=== PATIENT | male | born 1970 | race Caucasian/White ===

== ENCOUNTER 2023-03-21 02:42 | Observation (INO) | payer OTHER ==
[2023-03-21] MEDS ORDERED: SODIUM CHLORIDE 0.9% 1,000 ML IV STA (03:30)
[2023-03-21] MEDS ORDERED: SODIUM CHLORIDE 0.9% 1,000 ML IV ONE (03:30)
--- NOTE | 2023-03-21 03:39 | ED ---
Abdominal Pain HPI - General Chief Complaint: Abdominal Pain Stated Complaint: Gallbladder issue Time Seen by Provider: 03/21/23 03:15 Source: patient Mode of arrival: ambulatory Limitations: no limitations - History of Present Illness Initial Comments: This patient is a 52-year-old man who arrives here as a transfer from [facility]. The patient had gone there tonight to have evaluation of upper abdominal pain. The patient states he has been having intermittent pains like this going back for weeks to months. Tonight the pain occurred at about 7 PM after he had eaten. When the pain did not resolve he went to the other hospital. He had labs there that included a leukocytosis white count was 12.8. He had normal AST/ALT/bilirubin. He had computed tomography scan that showed gallbladder wall thickening and pericholecystic fluid. The patient did have decent pain relief, and is declining further analgesics here. MD Complaint: abdominal pain -: hour(s) Location: RUQ, epigastric Radiation: back Migration to: no migration Severity: moderate Quality: aching, sharp Consistency: constant Improves With: nothing Worsens With: nothing Associated Symptoms: nausea, vomiting - Related Data Allergies Allergy/AdvReac Type Severity Reaction Status Date / Time No Known Allergies Allergy Verified 03/21/23 03:01 Review of Systems ROS Statement: Those systems with pertinent positive or pertinent negative responses have been documented in the HPI. ROS Other: All systems not noted in ROS Statement are negative. Constitutional: Denies: fever, chills Respiratory: Denies: cough, dyspnea Cardiovascular: Denies: chest pain, palpitations Gastrointestinal: Reports: abdominal pain, nausea. Denies: vomiting, diarrhea Genitourinary: Denies: dysuria, hematuria Skin: Denies: rash Neurological: Denies: headache, weakness Past Medical History Past Medical History: Deep Vein Thrombosis (DVT) History of Any Multi-Drug Resistant Organisms: None Reported Additional Past Surgical History / Comment(s): vein stripping left leg, wisdom teeth removal. Past Psychological History: No Psychological Hx Reported Smoking Status: Current every day smoker Past Alcohol Use History: Occasional Past Drug Use History: Marijuana General Exam Limitations: no limitations General appearance: alert, in no apparent distress Head exam: Present: atraumatic, normocephalic Eye exam: Present: normal appearance. Absent: scleral icterus, conjunctival injection ENT exam: Present: normal oropharynx Neck exam: Present: normal inspection Respiratory exam: Present: normal lung sounds bilaterally. Absent: respiratory distress, wheezes, rales, rhonchi, stridor, accessory muscle use Cardiovascular Exam: Present: regular rate, normal rhythm, normal heart sounds. Absent: systolic murmur, diastolic murmur, rubs, gallop GI/Abdominal exam: Present: soft, tenderness. Absent: distended, guarding, rebound, rigid, mass, pulsatile mass, hernia Extremities exam: Present: normal inspection, normal capillary refill. Absent: pedal edema, calf tenderness Back exam: Present: normal inspection. Absent: CVA tenderness (R), CVA tenderness (L) Neurological exam: Present: alert Skin exam: Present: warm, dry, intact, normal color. Absent: rash Course Vital Signs 03/21/23 02:57 Temperature 98.2 F Pulse Rate 69 Respiratory 18 Rate Blood Pressure 129/64 O2 Sat by Pulse 97 Oximetry Disposition Referrals: Alannah Espinal MD [Primary Care Provider] - 1-2 days
[2023-03-21 03:54] LABS: Basophils % (A) 0 %; Eosinophils # (A) 0.1 k/uL (0-0.7); Eosinophils % (A) 1 %; HCT 47.8 % (39.0-53.0); HGB 16.4 gm/dL (13.0-17.5); Lymphocytes # (A) 2.5 k/uL (1.0-4.8); Lymphocytes % (A) 20 %; MCH 34.3 pg (25.0-35.0); MCHC 34.2 g/dL (31.0-37.0); MCV 100.2 fL (80.0-100.0); Mean Platelet Volume 8.1; Monocytes # (A) 0.6 k/uL (0-1.0); Monocytes % (A) 5 %; Neutrophils # (A) 9.2 k/uL (1.3-7.7); Neutrophils % (A) 73 %; Platelet Count 166 k/uL (150-450); RBC 4.77 m/uL (4.30-5.90); RDW 12.4 % (11.5-15.5); WBC 12.6 k/uL (3.8-10.6)
[2023-03-21 04:09] LABS: ALT 38 U/L (4-49); AST 55 U/L (17-59); African American GFR (CKD) >90 (>60 ml/min/1.73 sqM); Albumin 3.5 g/dL (3.5-5.0); Alkaline Phosphatase 66 U/L (38-126); Anion Gap 7 mmol/L; Blood Urea Nitrogen 16 mg/dL (9-20); Calcium 8.9 mg/dL (8.4-10.2); Carbon Dioxide 21 mmol/L (22-30); Chloride 110 mmol/L (98-107); Glucose 121 mg/dL (74-99); Non-African American GFR(CKD) >90 (>60 ml/min/1.73 sqM); Potassium 4.5 mmol/L (3.5-5.1); Sodium 138 mmol/L (137-145); Total Bilirubin 0.3 mg/dL (0.2-1.3); Total Protein 5.9 g/dL (6.3-8.2)
[2023-03-21] MEDS ORDERED: ACETAMINOPHEN TAB 325 MG TAB PO PRN (04:15)
[2023-03-21] MEDS ORDERED: NALOXONE 0.4 MG/ML 1 ML VIAL IV PRN (04:15)
--- NOTE | 2023-03-21 04:16 | P.CON ---
Consult Note - . Consult date: 03/21/23 Assessment/Plan:: Chief complaint; 52-year-old male transferred in from local emergency department for complaints of right upper quadrant and epigastric pain for the past 1 week HPI; patient states for the past approximately 7-10 days he had been having intermittent abdominal pain, worse after eating and worse in the evening. Over the last 24 hours this had become more severe prompting of the medical evaluation. Patient was seen in the [facility] where lab work and a CAT scan was performed. Examination and workup consistent with cholelithiasis and acute cholecystitis. PMH; DVT approximately 7 years ago Medications; 1 baby aspirin per day ALLERGIES; NO KNOWN DRUG ALLERGIES PSH; vein stripping left lower extremity, skin graft to hand Habits; tobacco positive for approximately 1 pack per day EtOH occasional use, daily use marijuana. Physical exam: HEENT: Normocephalic, sclerae nonicteric Chest: Clear, non labored repirations Heart: Regular rate and rhythm Abdomen: soft, mild to mod tenderness epigastrium Extremities: No edema Neuro: Alert and oriented, appropriate CT; notes presence of likely cholelithiasis, wall thickening and pericholecystic fluid. Labs: WBC 12.8, hemoglobin 16, platelets normal liver function studies within normal limits A/P : A 52-year-old gentleman with cholelithiasis, likely acute cholecystitis Admit, nothing by mouth, IV antibiotics Plan for laparoscopic possible open cholecystectomy this admission.
[2023-03-21] MEDS: SODIUM CHLORIDE 0.9% 1,000 ML IV SCH ×3 (04:24→19:51)
[2023-03-21 04:46] LABS: Partial Thromboplastin Time 24.3 sec (22.0-30.0); Prothrombin Time 10.6 sec (10.0-12.5)
[2023-03-21] MEDS ORDERED: HYDROmorphone 1 MG/ML 1 ML SYRINGE IVP PRN (11:24)
[2023-03-21] MEDS ORDERED: ACETAMINOPHEN IV (For NPO) 1,000 MG in EMPTY BAG 1 BAG IVPB ONE (11:24)
--- NOTE | 2023-03-21 11:24 | P.GSHP ---
History of Present Illness H&P Date: 03/21/23 Patient came in with atypical chest pain with epigastric right upper qaudrant pain after eating tacos. He reports progressive attacks in the last few days. He has family history of gallbladder disease. Recommend cardiac risk assessment. He denies any prior history of cardiac risk assessment or stress test. Past Medical History Past Medical History: Deep Vein Thrombosis (DVT) History of Any Multi-Drug Resistant Organisms: None Reported Additional Past Surgical History / Comment(s): vein stripping left leg, wisdom teeth removal, skin graft finger. Past Anesthesia/Blood Transfusion Reactions: No Reported Reaction Past Psychological History: No Psychological Hx Reported Smoking Status: Current every day smoker Past Alcohol Use History: Occasional Past Drug Use History: Marijuana - Past Family History Mother Family Medical History: No Reported History Father Family Medical History: Cancer, Hypertension Additional Family Medical History / Comment(s): lung CA, diverticulitis Medications and Allergies Home Medications Medication Instructions Recorded Confirmed Type Aspirin [Adult Low Dose Aspirin EC] 81 mg PO DAILY 03/21/23 03/21/23 History Allergies Allergy/AdvReac Type Severity Reaction Status Date / Time No Known Allergies Allergy Verified 03/21/23 03:01 Surgical - Exam Vital Signs Temp Pulse Resp BP Pulse Ox 98.2 F 69 18 129/64 97 03/21/23 02:57 03/21/23 02:57 03/21/23 02:57 03/21/23 02:57 03/21/23 02:57 Results - Labs 03/21/23 03:36 03/21/23 03:39 Abnormal Lab Results - Last 24 Hours (Table) 03/21/23 03/21/23 Range/Units 03:36 03:39 WBC 12.6 H (3.8-10.6) k/uL MCV 100.2 H (80.0-100.0) fL Neutrophils # 9.2 H (1.3-7.7) k/uL Chloride 110 H (98-107) mmol/L Carbon Dioxide 21 L (22-30) mmol/L Glucose 121 H (74-99) mg/dL Total Protein 5.9 L (6.3-8.2) g/dL Diabetes panel 03/21/23 Range/Units 03:39 Sodium 138 (137-145) mmol/L Potassium 4.5 (3.5-5.1) mmol/L Chloride 110 H (98-107) mmol/L Carbon Dioxide 21 L (22-30) mmol/L BUN 16 (9-20) mg/dL Creatinine 0.86 (0.66-1.25) mg/dL Glucose 121 H (74-99) mg/dL Calcium 8.9 (8.4-10.2) mg/dL AST 55 (17-59) U/L ALT 38 (4-49) U/L Alkaline Phosphatase 66 (38-126) U/L Total Protein 5.9 L (6.3-8.2) g/dL Albumin 3.5 (3.5-5.0) g/dL Calcium panel 03/21/23 Range/Units 03:39 Calcium 8.9 (8.4-10.2) mg/dL Albumin 3.5 (3.5-5.0) g/dL Pituitary panel 03/21/23 Range/Units 03:39 Sodium 138 (137-145) mmol/L Potassium 4.5 (3.5-5.1) mmol/L Chloride 110 H (98-107) mmol/L Carbon Dioxide 21 L (22-30) mmol/L BUN 16 (9-20) mg/dL Creatinine 0.86 (0.66-1.25) mg/dL Glucose 121 H (74-99) mg/dL Calcium 8.9 (8.4-10.2) mg/dL Adrenal panel 03/21/23 Range/Units 03:39 Sodium 138 (137-145) mmol/L Potassium 4.5 (3.5-5.1) mmol/L Chloride 110 H (98-107) mmol/L Carbon Dioxide 21 L (22-30) mmol/L BUN 16 (9-20) mg/dL Creatinine 0.86 (0.66-1.25) mg/dL Glucose 121 H (74-99) mg/dL Calcium 8.9 (8.4-10.2) mg/dL Total Bilirubin 0.3 (0.2-1.3) mg/dL AST 55 (17-59) U/L ALT 38 (4-49) U/L Alkaline Phosphatase 66 (38-126) U/L Total Protein 5.9 L (6.3-8.2) g/dL Albumin 3.5 (3.5-5.0) g/dL
--- NOTE | 2023-03-21 13:07 | P.CRDCN ---
History of Present Illness Consult date: 03/21/23 Consult reason: pre-op evaluation Chief complaint: abdominal pain History of present illness: History of present illness: Patient is a pleasant 52-year-old male with significant past medical history of DVT and varicose veins who presented to the emergency department with complaints of epigastric pain. He does not follow with telephone operator receptionist. Cardiology was consulted for preoperative clearance. He reports that he has been having epigastric pain mostly in the evenings after eating dinner while he is sitting in his chair for the past 7-10 days. Pain has been intermittent. He reports it was worse last night with diaphoresis and nausea. He denies having any shortness of breath or chest pain. He does smoke, uses occasional alcohol as well as marijuana, no other drug use. He denies any significant family history of heart disease. He states that he can walk a flight of stairs without stopping. EKG shows sinus rhythm with J-point elevation likely early repolarization. Troponin was negative 1. He does follow with Dr. Rojas vascular surgery for his vein issues and is currently on aspirin 81 mg. General surgery is planning for cholecystectomy tomorrow afternoon. REVIEW OF SYSTEMS: No fever or chills. No cough or expectoration. No diaphoresis. Patient denies headache, dizziness, blurred vision, double vision. Reports stomach discomfort. No nausea, vomiting. No hematochezia. No hematemesis. Denies any black stools or blood in his stools. Denies dysuria or hematuria. No muscle weakness or numbness. No chest pain or pressure. PHYSICAL EXAMINATION: This is a 52-year-old male in no apparent distress at the time of my examination. HEENT: Head is atraumatic, normocephalic. Pupils are equal, round. Sclerae anicteric. Conjunctivae are clear. Mucous membranes of the mouth are moist. Neck is supple. There is no jugular venous distention. No carotid bruit is heard. CHEST EXAMINATION: Lungs are clear to auscultation. No chest wall tenderness is noted on palpation or with deep breathing. HEART EXAMINATION: Heart regular rate and rhythm. S1, S2 heard. No murmurs, gallops or rub. ABDOMEN: Soft, nontender. Bowel sounds are heard. EXTREMITIES: 2+ peripheral pulses with no evidence of peripheral edema and no calf tenderness noted. NEUROLOGIC EXAMINATION: Patient is awake, alert and oriented x3. IMPRESSION AND PLAN: Epigastric pain Tobacco abuse Preoperative examination History of lower extremity DVT PLAN: We'll check echocardiogram to evaluate heart function and structure for preoperative clearance. If echo is unremarkable, then ok to proceed with surgery. Smoking cessation was emphasized. May consider stress testing as an outpatient in the future. I am dictating on behalf of Dr. Luis Armando Eng's history/physical and assessment/plan. Past Medical History Past Medical History: Deep Vein Thrombosis (DVT) History of Any Multi-Drug Resistant Organisms: None Reported Additional Past Surgical History / Comment(s): vein stripping left leg, wisdom teeth removal, skin graft finger. Past Anesthesia/Blood Transfusion Reactions: No Reported Reaction Past Psychological History: No Psychological Hx Reported Smoking Status: Current every day smoker Past Alcohol Use History: Occasional Past Drug Use History: Marijuana - Past Family History Mother Family Medical History: No Reported History Father Family Medical History: Cancer, Hypertension Additional Family Medical History / Comment(s): lung CA, diverticulitis Medications and Allergies Home Medications Medication Instructions Recorded Confirmed Type Aspirin [Adult Low Dose Aspirin EC] 81 mg PO DAILY 03/21/23 03/21/23 History Allergies Allergy/AdvReac Type Severity Reaction Status Date / Time No Known Allergies Allergy Verified 03/21/23 03:01 Physical Exam Vitals: Vital Signs Temp Pulse Pulse Resp BP BP Pulse Ox 03/21/23 08:00 97.9 F 61 16 149/63 97 03/21/23 07:39 61 20 126/65 95 03/21/23 06:00 55 L 16 123/65 95 03/21/23 02:57 98.2 F 69 18 129/64 97 Intake and Output 03/20/23 03/21/23 03/21/23 22:59 06:59 14:59 Other: Voiding Method Toilet Weight 93.44 kg 93.44 kg Results 03/21/23 03:36 03/21/23 03:39 Cardiac Enzymes 03/21/23 Range/Units 03:39 AST 55 (17-59) U/L Coagulation 03/21/23 Range/Units 03:39 PT 10.6 (10.0-12.5) sec APTT 24.3 (22.0-30.0) sec CBC 03/21/23 Range/Units 03:36 WBC 12.6 H (3.8-10.6) k/uL RBC 4.77 (4.30-5.90) m/uL Hgb 16.4 (13.0-17.5) gm/dL Hct 47.8 (39.0-53.0) % Plt Count 166 (150-450) k/uL Comprehensive Metabolic Panel 03/21/23 Range/Units 03:39 Sodium 138 (137-145) mmol/L Potassium 4.5 (3.5-5.1) mmol/L Chloride 110 H (98-107) mmol/L Carbon Dioxide 21 L (22-30) mmol/L BUN 16 (9-20) mg/dL Creatinine 0.86 (0.66-1.25) mg/dL Glucose 121 H (74-99) mg/dL Calcium 8.9 (8.4-10.2) mg/dL AST 55 (17-59) U/L ALT 38 (4-49) U/L Alkaline Phosphatase 66 (38-126) U/L Total Protein 5.9 L (6.3-8.2) g/dL Albumin 3.5 (3.5-5.0) g/dL Current Medications Generic Name Dose Route Start Last Admin Trade Name Freq PRN Reason Stop Dose Admin Acetaminophen 650 mg 03/21/23 04:15 Acetaminophen Tab 325 Mg Tab PO Q6HR PRN Mild Pain or Fever > 100.5 Heparin Sodium (Porcine) 5,000 unit 03/21/23 21:00 Heparin Sodium,Porcine 5,000 Unit/Ml 1 Ml Vial SQ Q12HR IZA Hydromorphone HCl 1 mg 03/21/23 11:24 Hydromorphone 1 Mg/Ml 1 Ml Syringe IVP Q4HR PRN Severe Pain (Scale 7 to 10) Sodium Chloride 1,000 mls @ 130 mls/hr 03/21/23 04:15 03/21/23 04:24 Saline 0.9% IV Not Given .[id number] IZA Cefazolin Sodium 2 gm/ Sodium 50 mls @ 100 mls/hr 03/22/23 07:00 Chloride IVPB 03/22/23 23:00 ONCE PRN Pre-Op Protocol Acetaminophen 1,000 mg/ IV 100 mls @ 400 mls/hr 03/21/23 11:24 Solution IVPB 03/21/23 11:25 ONCE ONE Naloxone HCl 0.2 mg 03/21/23 04:15 Naloxone 0.4 Mg/Ml 1 Ml Vial IV Q2M PRN Opioid Reversal Non-Formulary Medication 81 mg 03/22/23 09:00 Aspirin [Adult Low Dose Aspirin Ec] PO DAILY IZA Pantoprazole Sodium 40 mg 03/22/23 09:00 Pantoprazole 40 Mg/10 Ml Vial IV DAILY IZA Intake and Output 03/20/23 03/21/23 03/21/23 22:59 06:59 14:59 Other: Voiding Method Toilet Weight 93.44 kg 93.44 kg Patient Weight 03/22/23 06:59 Weight 93.44 kg 03/21/23 03:36 03/21/23 03:39
--- NOTE | 2023-03-21 15:40 | US ---
EXAMINATION TYPE: US gallbladder DATE OF EXAM: 03/21/2023 COMPARISON: NONE CLINICAL INDICATION: Male, 52 years old with history of Cholecystits, CBD stones; Gallstones pain and nausea surgery tomorrow. TECHNIQUE: Multiple sonographic images of the right upper quadrant are obtained. FINDINGS: EXAM MEASUREMENTS: Liver Length: 15.6 cm Gallbladder Wall: .9 cm CBD: .5 cm Right Kidney: 10.2 x 4.5 x 5.0 cm LEADERSHIP DEVELOPMENT CONSULTANT NOTES: Pancreas: Tail obscured by overlying bowel gas duct visualized 2 mm. Liver: Increased attenuation Gallbladder: Multiple stones seen thickened wall Evidence for sonographic Hernandez's sign: No CBD: wnl Right Kidney: No hydronephrosis or masses seen IMPRESSION: Cholelithiasis with gallbladder wall thickening.
[2023-03-21] MEDS: HEPARIN SODIUM,PORCINE 5,000 UNIT/ML 1 ML VIAL SQ SCH (19:51)
[2023-03-22] MEDS: SODIUM CHLORIDE 0.9% 1,000 ML IV SCH ×2 (03:46→21:48)
[2023-03-22] MEDS: HEPARIN SODIUM,PORCINE 5,000 UNIT/ML 1 ML VIAL SQ SCH ×2 (08:05→21:49)
[2023-03-22] MEDS: ASPIRIN 81 MG PO SCH (08:08)
[2023-03-22] MEDS: PANTOPRAZOLE 40 MG/10 ML VIAL IV SCH (08:08)
[2023-03-22 09:05] LABS: ALT 27 U/L (10-49); AST 19 U/L (14-35); Albumin 3.4 d/dL (3.8-4.9); Albumin/Globulin Ratio 1.89 Ratio (1.60-3.17); Alkaline Phosphatase 65 U/L (41-126); BUN/Creat Ratio 8.89 Ratio (12.00-20.00); Calcium 8.6 mg/dL (8.7-10.3); Carbon Dioxide 21.2 mmol/L (21.6-31.8); Chloride 112 mmol/L (96-109); Globulin 1.8 d/dL (1.6-3.3); Glucose 87 mg/dL (70-110); Potassium 4.4 mmol/L (3.5-5.5); Sodium 142 mmol/L (135-145); Total Bilirubin 0.4 mg/dL (0.3-1.2); Total Protein 5.2 d/dL (6.2-8.2)
[2023-03-22 09:20] LABS: Basophils # (A) 0.06 X 10*3/uL (0.00-0.10); Basophils % (A) 0.8 %; Eosinophils # (A) 0.28 X 10*3/uL (0.04-0.35); Eosinophils % (A) 3.6 %; HCT 46.3 % (39.6-50.0); HGB 15.5 d/dL (13.0-17.0); Lymphocytes # (A) 3.11 X 10*3/uL (0.90-5.00); Lymphocytes % (A) 40.1 %; MCH 32.8 pg (27.0-32.0); MCHC 33.5 d/dL (32.0-37.0); MCV 98.1 FL (80.0-97.0); Mean Platelet Volume 10.6 FL (9.5-12.2); Monocytes # (A) 0.59 X 10*3/uL (0.20-1.00); Monocytes % (A) 7.6 %; NRBC Per 100 WBC 0 X 10*3/uL (0.00-0.01); Neutrophils # (A) 3.68 X 10*3/uL (1.80-7.70); Neutrophils % (A) 47.5 %; Platelet Count 164 X 10*3/uL (140-440); RBC 4.72 X 10*6/uL (4.40-5.60); RDW 12.5 % (11.5-14.5); WBC 7.75 X 10*3/uL (4.50-10.00)
--- NOTE | 2023-03-22 12:09 | P.PN ---
Subjective Progress Note Date: 03/22/23 History of present illness: Patient is a pleasant 52-year-old male with significant past medical history of DVT and varicose veins who presented to the emergency department with complaints of epigastric pain. He does not follow with transformation consultant. Cardiology was consulted for preoperative clearance. He reports that he has been having epigastric pain mostly in the evenings after eating dinner while he is sitting in his chair for the past 7-10 days. Pain has been intermittent. He reports it was worse last night with diaphoresis and nausea. He denies having any shortness of breath or chest pain. He does smoke, uses occasional alcohol as well as marijuana, no other drug use. He denies any significant family history of heart disease. He states that he can walk a flight of stairs without stopp ing. EKG shows sinus rhythm with J-point elevation likely early repolarization. Troponin was negative 1. He does follow with Dr. Rojas vascular surgery for his vein issues and is currently on aspirin 81 mg. General surgery is planning for cholecystectomy tomorrow afternoon. 03/22 Patient is seen today in follow-up. He states he had a good night. Pain is currently controlled. No chest pain or shortness of breath. Patient states that he is normally active and does not experience chest pain with activity. He has been cleared for surgical intervention for robotic cholecystectomy. Ech ocardiogram is pending. Repeat blood work reveals WBC 12.3, hemoglobin 12.9, creatinine 0.8. Blood pressure 103/70, heart rate in the 80s, afebrile, pulse ox 95% on room air PHYSICAL EXAMINATION: This is a 52-year-old male in no apparent distress at the time of my examination. HEENT: Head is atraumatic, normocephalic. Pupils are equal, round. Sclerae anicteric. Conjunctivae are clear. Mucous membranes of the mouth are moist. Neck is supple. There is no jugular venous distention. No carotid bruit is heard. CHEST EXAMINATION: Lungs are clear to auscultation. No chest wall tenderness is noted on palpation or with deep breathing. HEART EXAMINATION: Heart regular rate and rhythm. S1, S2 heard. No murmurs, gallops or rub. ABDOMEN: Soft, nontender. Bowel sounds are heard. EXTREMITIES: 2+ peripheral pulses with no evidence of peripheral edema and no calf tenderness noted. NEUROLOGIC EXAMINATION: Patient is awake, alert and oriented x3. IMPRESSION AND PLAN: Epigastric pain Tobacco abuse Preoperative examination History of lower extremity DVT PLAN: Patient is cleared for surgical intervention. Patient is at low risk from cardiac standpoint for complications with surgical intervention. We will obtain echocardiogram for completeness but this does not need to hold up surgery. Nurse practitioner note has been reviewed, I agree with the documented findings and plan of care. Patient was seen and examined. Objective - Vital Signs Vital signs: Vital Signs Temp 97.8 F 03/22/23 02:00 Pulse 58 L 03/22/23 02:00 Resp 16 03/22/23 02:00 BP 139/64 03/22/23 02:00 Pulse Ox 94 L 03/22/23 02:00 FiO2 Intake & Output 03/21/23 03/22/23 03/22/23 18:59 06:59 18:59 Weight 93.44 kg Other: Voiding Method Toilet Toilet # Voids 3 3 - Labs CBC & Chem 7: 03/22/23 03:56 03/22/23 03:56
[2023-03-22] MEDS ORDERED: ONDANSETRON 4 MG/2 ML VIAL IVP ONE (18:29)
[2023-03-22] MEDS ORDERED: LACTATED RINGERS 1,000 ML IV ONE ×2 (18:29→20:29)
[2023-03-22] MEDS ORDERED: DEXAMETHASONE SOD PHOSPHATE 4 MG/ML 1 ML VIAL IVP ONE (18:30)
--- NOTE | 2023-03-22 19:06 | CA ---
Transthoracic Echo Report Name: Kirit De Santiago Age: 52 Gender: M : 1970 Exam Date: 03/22/2023 11:16 Exam Location: [facility] Ht (in): 71 Wt (lb): 206 Ordering Physician: Ruma Montenegro MD Attending/Referring Phys: Lan LOWERY Oil Inspector Yasmin Mayes RDCS Procedure CPT: Indications: atypical chest pain Cardiac Hx: Technical Quality: Contrast 1: Total Dose (mL): Contrast 2: Total Dose (mL): MEASUREMENTS (Male / Female) Normal Values 2D ECHO LV Diastolic Diameter PLAX 4.7 cm 4.2 - 5.9 / 3.9 - 5.3 cm LV Systolic Diameter PLAX 2.8 cm IVS Diastolic Thickness 1.4 cm 0.6 - 1.0 / 0.6 - 0.9 cm LVPW Diastolic Thickness 1.5 cm 0.6 - 1.0 / 0.6 - 0.9 cm LV Relative Wall Thickness 0.6 RV Internal Dim ED PLAX 3.9 cm LA Volume 53.4 cm??? 18 - 58 / 22 - 52 cm??? LA Volume Index 24.5 cm???/m??? 16 - 28 cm???/m??? M-MODE Aortic Root Diameter MM 3.3 cm LA Systolic Diameter MM 3.5 cm LA Ao Ratio MM 1.1 AV Cusp Separation MM 1.8 cm DOPPLER AV Peak Velocity 182.0 cm/s AV Peak Gradient 13.2 mmHg AV Mean Velocity 128.4 cm/s AV Mean Gradient 7.4 mmHg AV Velocity Time Integral 38.6 cm AI Peak Velocity 371.4 cm/s AI Peak Gradient 55.2 mmHg AI Pressure Half Time 943.4 ms LVOT Peak Velocity 156.4 cm/s LVOT Peak Gradient 9.8 mmHg LVOT Velocity Time Integral 42.2 cm MV Area PHT 4.1 cm??? Mitral E Point Velocity 98.6 cm/s Mitral A Point Velocity 105.0 cm/s Mitral E to A Ratio 0.9 MV Deceleration Time 184.8 ms MV E' Velocity 5.4 cm/s Mitral E to MV E' Ratio 18.2 FINDINGS Left Ventricle Mildly increased left ventricular wall thickness. Left ventricular cavity size normal. Normal left ventricular systolic function with no obvious regional wall motion abnormalities. Left ventricular ejection fraction is estimated at 55-60 %. Right Ventricle Mild right ventricular dilatation. Right ventricular systolic pressure within normal limits. Right Atrium Normal right atrial size. Left Atrium Normal left atrial size. Mitral Valve Structurally normal mitral valve. No mitral stenosis, or prolapse. Mild mitral regurgitation. Aortic Valve Mild to moderate aortic regurgitation.aortic valve not well visualized. Tricuspid Valve Structurally normal tricuspid valve. Mild tricuspid regurgitation. Pulmonic Valve Structurally normal pulmonic valve. Pericardium No pericardial effusion. Aorta Normal size aortic root and proximal ascending aorta. CONCLUSIONS 1. Normal left ventricular size and systolic function 2. Mild to moderate aortic regurgitation 3. Mild mitral and tricuspid regurgitation Previewed by: Dr. Nik Fleming MD (Electronically Signed) Final Date: 22 March 2023 19:05
[2023-03-22] MEDS ORDERED: fentaNYL (PF) 50 MCG/ML 2 ML AMP ONE (19:25)
[2023-03-22] MEDS ORDERED: SUGAMMADEX SODIUM 200 MG/2 ML SDV IV ONE (19:25)
[2023-03-22] MEDS ORDERED: ROCURONIUM 10 MG/ML (5 ML VIAL) IV ONE (19:25)
[2023-03-22] MEDS ORDERED: PROPOFOL 10 MG/ML 20 ML VIAL IV ONE (19:25)
[2023-03-22] MEDS ORDERED: LIDOCAINE 1% INJ 10MG/ML (20 ML MDV) ONE (19:25)
[2023-03-22] MEDS ORDERED: MIDAZOLAM 2 MG/2 ML VIAL ONE (19:25)
[2023-03-22] MEDS ORDERED: HYDROmorphone (PF) 1 MG/ML ONE (19:25)
[2023-03-22] MEDS ORDERED: INDOCYANINE GREEN 25 MG VIAL IV ONE (19:25)
[2023-03-22] MEDS ORDERED: KETOROLAC 30 MG/ML 1 ML VIAL ONE (19:25)
[2023-03-22] MEDS ORDERED: LIDOCAINE 1%-EPI 1:100,000 50 ML VIAL SQ ONE ×2 (19:48)
[2023-03-22] MEDS ORDERED: ONDANSETRON 4 MG/2 ML VIAL IVP PRN (20:49)
--- NOTE | 2023-03-22 20:53 | P.OP ---
Date of Procedure: 03/22/23 Description of Procedure: SURGEON: SUNSHINE PERRY MD PREOPERATIVE DIAGNOSES: 1. Acute cholecystitis due to cystic duct obstruction, gallstone 2. Tobacco abuse 3. Personal history of DVT 4. Leukocytosis POSTOPERATIVE DIAGNOSES: 1. Acute cholecystitis due to cystic duct obstruction, gallstone 2. Tobacco abuse 3. Personal history of DVT OPERATION: Robotic-assisted da Patricia Xi laparoscopic cholecystectomy, multiport with FIREFLY ESTIMATED BLOOD LOSS: 5 mL. SPECIMENS REMOVED: Gallbladder. COMPLICATIONS: None. OPERATIVE FINDINGS: 1. Multiple gallstones 2. Thickened gallbladder wall due to acute cholecystitis INDICATIONS: The patient is a 52-year-old male who presents with acute cholecystitis. Robotic assisted laparoscopic approach was described. Benefits and risks of the procedure including but not limited to bleeding, infection, injury to the biliary tree was described. Informed consent was obtained. DESCRIPTION OF PROCEDURE: Patient was brought to the operating room, placed in supine position. After general induction, the abdomen had been prepped and draped in standard sterile fashion. The robotic da Patricia XI system was primed. After a timeout protocol was performed, the patient had been prepped and draped in standard sterile fashion. The patient was injected with indocyanine green. A 5 mm 0 degrees laparoscopic trocar entry was performed along the left upper quadrant. The abdomen insufflated to 15 mmHg pressure which was tolerated well. Diagnostic laparoscopy demonstrated no injury to bowel viscera or mesentery. The liver surface was unremarkable. Next, two 8 mm robotic ports were placed along the right upper abdomen. The camera 8-mm port was maintained along the epigastrium. Another 8 mm port was placed along the left upper abdominal wall after exchanging the 5 mm port. Please note that the ports were placed at least 10 to 15 cm away from the target anatomy of the gallbladder. The robot was docked along the left lateral abdomen. The patient was repositioned in reverse Trendelenburg position. Using a grasper for arm 3, a grasper for arm 4, including hook cautery for arm 1, the robotic system was docked and primed as described. Instruments were interchanged by the assistant therapy aide including hook cautery, Bovie cautery and clip appliers. I had sat at the console. Next attention was brought to the infundibulum and cystic structures. gallbladder wall was thickened consistent with acute cholecystitis. The infundibulum and cystic duct were dissected free from surrounding tissues. The cystic duct was isolated. FIREFLY was used to identify the cystic artery and cystic structures. A critical view of safety was obtained. Large PLASTIC clips were used throughout the entire case. Using a clip bedspread seamer, 2 clips were placed at the junction of the infundibulum and cystic duct. The cystic duct was divided between clips. Next, the cystic artery was similarly clipped and cauterized. Electro-Bovie cautery was used to remove the gallbladder from the hepatic fossa. Hemostasis was checked and found to be adequate. The robot was undocked. I re-scrubbed into the case. Using a 10 mm Endo Catch bag via the left upper quadrant incision, the specimen was removed from the abdominal cavity. All pneumoperitoneum instruments were evacuated from the abdominal cavity. The incisions were reapproximated using 4-0 Monocryl in an interrupted subcuticular fashion. Fascial defects were less than 8 mm in size. Please note along the trocar sites, local anesthetic was placed as a field block prior to insertion of all instruments. Liquid glue was applied to the skin. At the end of the procedure needle, sponge, and instrument count had been verified correct by the surgical instruments inspector. The patient was transferred to postanesthesia care unit in stable condition. Intraoperative films were shared with the patient's family.
[2023-03-22] MEDS ORDERED: LABETALOL SYRINGE 5 MG/ML (4 ML SYR) IVP ONE (20:57)
[2023-03-22 21:08] VITALS: RESP 16
[2023-03-23] MEDS: SODIUM CHLORIDE 0.9% 1,000 ML IV SCH ×2 (04:32→13:57)
[2023-03-23 08:04] VITALS: BP 138/63; PULSE 60; TEMP 98
[2023-03-23] MEDS: ASPIRIN 81 MG PO SCH (09:14)
[2023-03-23] MEDS: HEPARIN SODIUM,PORCINE 5,000 UNIT/ML 1 ML VIAL SQ SCH (09:15)
[2023-03-23] MEDS: PANTOPRAZOLE 40 MG/10 ML VIAL IV SCH (09:15)
[2023-03-23 09:30] LABS: ALT 41 U/L (10-49); AST 36 U/L (14-35); Albumin 3.4 d/dL (3.8-4.9); Albumin/Globulin Ratio 1.79 Ratio (1.60-3.17); Alkaline Phosphatase 66 U/L (41-126); BUN/Creat Ratio 13.22 Ratio (12.00-20.00); Blood Urea Nitrogen 11.9 mg/dL (9.0-27.0); Calcium 8.6 mg/dL (8.7-10.3); Carbon Dioxide 20.4 mmol/L (21.6-31.8); Chloride 106 mmol/L (96-109); Globulin 1.9 d/dL (1.6-3.3); Glucose 96 mg/dL (70-110); Potassium 4.7 mmol/L (3.5-5.5); Sodium 138 mmol/L (135-145); Total Bilirubin 0.2 mg/dL (0.3-1.2); Total Protein 5.3 d/dL (6.2-8.2)
== END 2023-03-23 10:21 | disposition home or self-care (01) ==
LOC: EC 02:42 → INTOOBSV 04:15 → 4SSUR 04:15
PROVIDERS: ADMIT Surgery Plastic and Reconstructive Surgery; ATTEND Surgery Plastic and Reconstructive Surgery
DX: K80.01 Calculus of gallbladder with acute cholecystitis with obstruction (principal); F17.210 Nicotine dependence, cigarettes, uncomplicated; Z79.82 Long term (current) use of aspirin; Z86.79 Personal history of other diseases of the circulatory system; Z86.718 Personal history of other venous thrombosis and embolism; Z98.890 Other specified postprocedural states; Z83.79 Family history of other diseases of the digestive system; Z82.49 Family history of ischemic heart disease and other diseases of the circulatory system; Z80.1 Family history of malignant neoplasm of trachea, bronchus and lung
CPT/HCPCS: 47562; S2900; 36415; 76705; 80053; 85025; 85610; 85730; 93005; 93306; 96361; 96365; 96372; 96375; 99285